=== PATIENT | female | born 1965 | race African-American/Black ===

== ENCOUNTER 2023-08-29 18:46 | Emergency (ER) | payer OTHER ==
[~2023-08-29] VITALS: Ht 170.2 cm; Wt 59.0 kg
[2023-08-29 19:00] VITALS: BP 186/100; PULSE 144; RESP 18; TEMP 98.6; O2SAT 99
[2023-08-29 19:46] LABS: BASOPHILS % 1.2 % (0.0-2.0); DIFFERENTIAL COMMENT 0; EOSINOPHILS % 1.7 % (0.0-5.0); HEMATOCRIT. 38.7 % (36.0-48.0); HEMOGLOBIN. 12.9 g/dL (12.0-16.0); LYMPHOCYTES % 42.3 % (20.0-50.0); MEAN CORPUSCULAR HEMOGLOBIN 34.6 pg (28.0-32.0); MEAN CORPUSCULAR HGB CONC 33.4 g/dL (31.0-37.0); MEAN CORPUSCULAR VOLUME 103.6 fL (81.0-99.0); MEAN PLATELET VOLUME 8.2 fl (7.4-10.4); MONOCYTES % 5.6 % (2.0-8.0); NEUTROPHILS % 49.2 % (40.0-76.0); PLATELET 332 x1000/uL (130-400); RED BLOOD CELL COUNT 3.74 mill/uL (4.2-5.4); RED CELL DISTRIBUTION WIDTH 15.3 % (11.6-14.6); WHITE BLOOD COUNT 6.3 x1000/uL (4.5-11.0)
[2023-08-29 20:05] LABS: CHLORIDE 113 mEq/L (98-107); INDEX HEMOLYSI 1 (1-3); INDEX ICTERIC 1 (1-4); INDEX LIPEMIC 1 (1-3); POTASSIUM 3.6 mEq/L (3.5-5.1); SODIUM 143 mEq/L (136-145)
[2023-08-29 20:16] LABS: ALANINE AMINOTRANSFERASE 31 IU/L (13-61); ALBUMIN 3.8 g/dL (3.4-5.0); ASPARTATE AMINOTRANSFERASE 27 IU/L (15-37); BILIRUBIN TOTAL 0.9 mg/dL (0.1-1.0); CALCIUM 9.4 mg/dL (8.5-10.1); CARBON DIOXIDE 24 mEq/L (21-32); CREATININE 0.7 mg/dL (0.6-1.3); ETHANOL BLOOD 345 mg/dL (<10); GLUCOSE 104 mg/dL (70-105); NT PRO B-TYPE NATRIURETIC PEP 21 pg/mL (5-125); UREA NITROGEN BLOOD 16 mg/dL (7-21)
[2023-08-29 20:47] LABS: TROPONIN I HIGH SENSITIVITY 10 ng/L (<54)
== END 2023-08-29 20:00 | disposition left against medical advice (07) ==
LOC: ER 18:46
DX: R00.2 Palpitations (principal); K21.9 Gastro-esophageal reflux disease without esophagitis
CPT/HCPCS: 36415; 71045; 80053; 80320; 83880; 84484; 85025; 93005; 99285; G0480

== ENCOUNTER 2023-11-28 10:59 | Emergency (ER) | payer OTHER ==
[~2023-11-28] VITALS: Ht 162.6 cm; Wt 80.0 kg
[2023-11-28 11:04] VITALS: BP 170/110; PULSE 90; RESP 18; TEMP 98.2; O2SAT 100
== END 2023-11-28 12:13 | disposition left against medical advice (07) ==
LOC: ER 11:10
DX: R10.9 Unspecified abdominal pain (principal); Z53.21 Procedure and treatment not carried out due to patient leaving prior to being seen by health care provider
CPT/HCPCS: 99281

== ENCOUNTER 2023-11-29 21:01 | Emergency (ER) | payer OTHER ==
[~2023-11-29] VITALS: Ht 167.6 cm; Wt 60.0 kg
[2023-11-29 21:12] VITALS: BP 169/94; PULSE 108; RESP 16; TEMP 97.9; O2SAT 100
== END 2023-11-30 00:31 | disposition left against medical advice (07) ==
LOC: ER 21:01
DX: R10.9 Unspecified abdominal pain (principal); Z53.21 Procedure and treatment not carried out due to patient leaving prior to being seen by health care provider
CPT/HCPCS: 99281

== ENCOUNTER 2023-12-19 16:07 | Emergency (ER) | payer MEDICAID, OTHER ==
[~2023-12-19] VITALS: Ht 165.1 cm; Wt 53.0 kg
[2023-12-19] MEDS ORDERED: MORPHINE SULFATE 4 MG/ML CPJ (NOT FOR IM USE) IV STA (16:16)
[2023-12-19] MEDS ORDERED: ONDANSETRON HCL 4MG/2ML INJ IV STA (16:16)
[2023-12-19] MEDS ORDERED: NAPROSYN (16:19)
[2023-12-19] MEDS ORDERED: METOPROLOL (16:19)
[2023-12-19] MEDS ORDERED: FLEXERIL (16:19)
[2023-12-19 16:20] VITALS: O2SAT 99
[2023-12-19 16:49] LABS: BASOPHILS % 1.1 % (0.0-2.0); DIFFERENTIAL COMMENT 0; EOSINOPHILS % 4.3 % (0.0-5.0); HEMATOCRIT. 38.2 % (36.0-48.0); HEMOGLOBIN. 12.5 g/dL (12.0-16.0); LYMPHOCYTES % 31.2 % (20.0-50.0); MEAN CORPUSCULAR HEMOGLOBIN 34.6 pg (28.0-32.0); MEAN CORPUSCULAR HGB CONC 32.8 g/dL (31.0-37.0); MEAN CORPUSCULAR VOLUME 105.6 fL (81.0-99.0); MEAN PLATELET VOLUME 8.6 fl (7.4-10.4); MONOCYTES % 6.6 % (2.0-8.0); NEUTROPHILS % 56.8 % (40.0-76.0); PLATELET 332 x1000/uL (130-400); RED BLOOD CELL COUNT 3.61 mill/uL (4.2-5.4); RED CELL DISTRIBUTION WIDTH 15.6 % (11.6-14.6)
[2023-12-19 17:00] LABS: INR 0.9; PROTHROMBIN TIME 9.8 sec (9.6-11.0)
[2023-12-19 17:04] LABS: ALANINE AMINOTRANSFERASE 33 IU/L (10-49); ALBUMIN 4.2 g/dL (3.2-4.8); ASPARTATE AMINOTRANSFERASE 34 IU/L (<34); BILIRUBIN TOTAL 0.6 mg/dL (0.1-1.0); CALCIUM 9.7 mg/dL (8.7-10.4); CARBON DIOXIDE 19 mEq/L (21-32); CHLORIDE 108 mEq/L (98-107); CREATININE 1.1 mg/dL (0.6-1.0); GLUCOSE 130 mg/dL (70-105); POTASSIUM 3.6 mEq/L (3.5-5.1); PROTEIN TOTAL 7.2 g/dL (6.0-8.3); SODIUM 141 mEq/L (136-145); UREA NITROGEN BLOOD 33 mg/dL (9-23)
[2023-12-19] MEDS ORDERED: IBUP-2029 MT (19:42)
[2023-12-19] MEDS ORDERED: SODIUM CHLORIDE 0.9% 1,000 ML IV ONE (19:45)
[2023-12-19] MEDS ORDERED: KETOROLAC 15MG/ML VIAL IV NR (19:45)
[2023-12-19 20:18] VITALS: BP 132/71; PULSE 65; RESP 17; TEMP 98.6
== END 2023-12-19 20:19 | disposition home or self-care (01) ==
LOC: ER 16:07
DX: D25.9 Leiomyoma of uterus, unspecified (principal); K76.0 Fatty (change of) liver, not elsewhere classified; Z85.42 Personal history of malignant neoplasm of other parts of uterus; K21.9 Gastro-esophageal reflux disease without esophagitis; I10 Essential (primary) hypertension
CPT/HCPCS: 99285; 74176; 96374; 96375; 80053; 83690; 85025; 85610; 36415; J2405; J2270; J7030

== ENCOUNTER 2024-01-13 20:29 | Emergency (ER) | payer MEDICAID, OTHER ==
[~2024-01-13] VITALS: Ht 157.5 cm; Wt 50.0 kg
[2024-01-13] MEDS: ONDANSETRON HCL 4MG/2ML INJ IV ONE
[~2024-01-13 20:29] MED LIST: FLEXERIL; IBUP-2029 MT; METOPROLOL; NAPROSYN
[2024-01-13 20:39] VITALS: TEMP 98.3; O2SAT 99
[2024-01-13 23:46] LABS: CLARITY URINE CLOUDY (CLEAR); COLOR URINE DARK YELLOW (YELLOW); GLUCOSE URINE NEGATIVE (NEGATIVE); KETONES URINE NEGATIVE (NEGATIVE); LEUKOCYTE ESTERASE URINE 1+ (NEGATIVE); NITRITE URINE NEGATIVE (NEGATIVE); OCCULT BLOOD URINE NEGATIVE (NEGATIVE); PH URINE 5.5 (4.5-8.0); PROTEIN URINE NEGATIVE (NEGATIVE); SPECIFIC GRAVITY URINE 1.012 (1.005-1.030); UROBILINOGEN URINE 0.2 E.U./dL (0.2-1.0)
[2024-01-14] MEDS: KETOROLAC 30MG/ML VIAL IV ONE
[2024-01-14 00:55] LABS: DIFFERENTIAL COMMENT 0; EOSINOPHILS % 5.7 % (0.0-5.0); HEMATOCRIT. 37.1 % (36.0-48.0); HEMOGLOBIN. 12.6 g/dL (12.0-16.0); LYMPHOCYTES % 40.8 % (20.0-50.0); MEAN CORPUSCULAR HEMOGLOBIN 34.9 pg (28.0-32.0); MEAN CORPUSCULAR HGB CONC 33.9 g/dL (31.0-37.0); MEAN CORPUSCULAR VOLUME 102.7 fL (81.0-99.0); NEUTROPHILS % 44.5 % (40.0-76.0); PLATELET 254 x1000/uL (130-400); RED BLOOD CELL COUNT 3.62 mill/uL (4.2-5.4); RED CELL DISTRIBUTION WIDTH 14.9 % (11.6-14.6); WHITE BLOOD COUNT 3.7 x1000/uL (4.5-11.0)
[2024-01-14 01:00] LABS: BACTERIA URINE 2+; SQUAMOUS EPITHELIAL CELL URINE 2+ /lpf (RARE/1+)
[2024-01-14 01:11] LABS: ALANINE AMINOTRANSFERASE 20 IU/L (10-49); ALBUMIN 4.2 g/dL (3.2-4.8); ASPARTATE AMINOTRANSFERASE 29 IU/L (<34); BILIRUBIN TOTAL 0.4 mg/dL (0.1-1.0); CALCIUM 10.5 mg/dL (8.7-10.4); CARBON DIOXIDE 23 mEq/L (21-32); CHLORIDE 105 mEq/L (98-107); CREATININE 1.1 mg/dL (0.6-1.0); GLUCOSE 98 mg/dL (70-105); SODIUM 139 mEq/L (136-145); UREA NITROGEN BLOOD 27 mg/dL (9-23)
[2024-01-14] MEDS ORDERED: IBUP-2029 MT (01:52)
[2024-01-14] MEDS: CEFTRIAXONE 1GM PREMIX 50 ML IV ONE (02:06)
[2024-01-14] MEDS: SODIUM CHLORIDE 0.9% 1,000 ML IV ONE (02:07)
[2024-01-14] MEDS: POTASSIUM CHLORIDE 20MEQ TABLET SR PO ONE (02:07)
[2024-01-14 02:55] VITALS: BP 152/100; PULSE 99; RESP 16
== END 2024-01-14 02:55 | disposition home or self-care (01) ==
LOC: ER 20:29
DX: D25.9 Leiomyoma of uterus, unspecified (principal); D64.9 Anemia, unspecified; I10 Essential (primary) hypertension; Z98.890 Other specified postprocedural states
CPT/HCPCS: 81003; 36415; 96375 ×2; 99285; 80053; 83690; 85025; 76830; 76856; 96365; J1885; J2405; Z7610 ×2; J0696; J7030

== ENCOUNTER 2024-03-18 12:31 | Emergency (ER) | payer MEDICAID, OTHER ==
[~2024-03-18] VITALS: Ht 165.1 cm; Wt 54.0 kg
[2024-03-18 12:33] VITALS: O2SAT 100
[2024-03-18] MEDS: LACTATED RINGERS 500 ML IV SCH (13:01)
[2024-03-18 13:17] LABS: BASOPHILS % 1.6 % (0.0-2.0); DIFFERENTIAL COMMENT 0; EOSINOPHILS % 3.9 % (0.0-5.0); HEMATOCRIT. 37.4 % (36.0-48.0); HEMOGLOBIN. 12.6 g/dL (12.0-16.0); LYMPHOCYTES % 45.8 % (20.0-50.0); MEAN CORPUSCULAR HEMOGLOBIN 34.6 pg (28.0-32.0); MEAN CORPUSCULAR HGB CONC 33.6 g/dL (31.0-37.0); MEAN PLATELET VOLUME 8.4 fl (7.4-10.4); MONOCYTES % 3.6 % (2.0-8.0); NEUTROPHILS % 45.1 % (40.0-76.0); PLATELET 393 x1000/uL (130-400); RED BLOOD CELL COUNT 3.63 mill/uL (4.2-5.4); RED CELL DISTRIBUTION WIDTH 16.3 % (11.6-14.6); WHITE BLOOD COUNT 5.8 x1000/uL (4.5-11.0)
[2024-03-18 13:25] LABS: CARBON DIOXIDE 22 mEq/L (21-32); CHLORIDE 109 mEq/L (98-107); SODIUM 142 mEq/L (136-145)
[2024-03-18 13:26] LABS: CALCIUM 10.2 mg/dL (8.7-10.4)
[2024-03-18 13:31] LABS: CREATININE 1.4 mg/dL (0.6-1.0); GLUCOSE 92 mg/dL (70-105); UREA NITROGEN BLOOD 17 mg/dL (9-23)
[2024-03-18 13:32] LABS: ALANINE AMINOTRANSFERASE 30 IU/L (10-49)
[2024-03-18 13:33] LABS: ASPARTATE AMINOTRANSFERASE 40 IU/L (<34); BILIRUBIN TOTAL 0.8 mg/dL (0.1-1.0); PROTEIN TOTAL 8.2 g/dL (6.0-8.3)
[2024-03-18 13:41] LABS: TROPONIN I HIGH SENSITIVITY < 4 ng/L (3.0-34)
[2024-03-18] MEDS: KETOROLAC 15MG/ML VIAL IV ONE (14:37)
[2024-03-18 16:51] VITALS: BP 134/96; PULSE 109; RESP 16; TEMP 98.3
== END 2024-03-18 17:12 | disposition short-term general hospital (02) ==
LOC: ER 12:31 → EDBEDREQ 14:32 → EDBEDREQTM 14:32 → CANBEDREQ 15:42 → EDBEDREQ 16:36 → ER 17:12 → CANBEDREQ 03-19 16:31
DX: R55 Syncope and collapse (principal); K21.9 Gastro-esophageal reflux disease without esophagitis; I10 Essential (primary) hypertension
CPT/HCPCS: 99285; 96374; 71045; 96361; 80053; 85025; 84484; 36415; 93005; J1885

== ENCOUNTER 2024-11-10 16:49 | Emergency (ER) | payer OTHER ==
[~2024-11-10] VITALS: Ht 160 cm; Wt 50.0 kg
[~2024-11-10 16:49] MED LIST changes: +AMLO5TAB88 PO; +ATOR10TA69 PO; +HYDR25TA PO; -IBUP-2029 MT; +METO25TA6 PO; -NAPROSYN
[2024-11-10 16:56] VITALS: O2SAT 96
[2024-11-10 18:34] LABS: BASOPHILS % 1.4 % (0.0-2.0); DIFFERENTIAL COMMENT 0; EOSINOPHILS % 4.3 % (0.0-5.0); HEMATOCRIT. 37.1 % (36.0-48.0); HEMOGLOBIN. 12.2 g/dL (12.0-16.0); LYMPHOCYTES % 48.4 % (20.0-50.0); MEAN CORPUSCULAR HEMOGLOBIN 35.8 pg (28.0-32.0); MEAN CORPUSCULAR HGB CONC 32.8 g/dL (31.0-37.0); MEAN CORPUSCULAR VOLUME 109.1 fL (81.0-99.0); MEAN PLATELET VOLUME 8.9 fl (7.4-10.4); MONOCYTES % 6.6 % (2.0-8.0); NEUTROPHILS % 39.3 % (40.0-76.0); PLATELET 318 x1000/uL (130-400); RED CELL DISTRIBUTION WIDTH 16.6 % (11.6-14.6); WHITE BLOOD COUNT 4.9 x1000/uL (4.5-11.0)
[2024-11-10 18:38] LABS: CHLORIDE 109 mEq/L (98-107); POTASSIUM 3.7 mEq/L (3.5-5.1); SODIUM 145 mEq/L (136-145)
[2024-11-10 18:39] LABS: CARBON DIOXIDE 24 mEq/L (21-32)
[2024-11-10 18:40] LABS: CALCIUM 10.9 mg/dL (8.7-10.4)
[2024-11-10 18:44] LABS: GLUCOSE 91 mg/dL (70-105)
[2024-11-10 18:45] LABS: UREA NITROGEN BLOOD 12 mg/dL (9-23)
[2024-11-10 18:46] LABS: ALANINE AMINOTRANSFERASE 17 IU/L (10-49); ASPARTATE AMINOTRANSFERASE 21 IU/L (<34)
[2024-11-10 18:47] LABS: BILIRUBIN TOTAL 0.4 mg/dL (0.1-1.0); PROTEIN TOTAL 8.1 g/dL (6.0-8.3)
[2024-11-10 18:52] LABS: INR 0.9; PROTHROMBIN TIME 9.7 sec (9.6-11.0)
[2024-11-10 19:01] LABS: BILIRUBIN DIRECT < 0.1 mg/dL (<=3.0)
[2024-11-10 22:11] LABS: CLARITY URINE CLEAR (CLEAR); COLOR URINE YELLOW (YELLOW); GLUCOSE URINE NEGATIVE (NEGATIVE); KETONES URINE NEGATIVE (NEGATIVE); LEUKOCYTE ESTERASE URINE NEGATIVE (NEGATIVE); NITRITE URINE NEGATIVE (NEGATIVE); OCCULT BLOOD URINE NEGATIVE (NEGATIVE); PH URINE 5.5 (4.5-8.0); PROTEIN URINE NEGATIVE (NEGATIVE); SPECIFIC GRAVITY URINE 1.012 (1.005-1.030); UROBILINOGEN URINE 0.2 E.U./dL (0.2-1.0)
[2024-11-10] MEDS ORDERED: ACETAMINOPHEN 325MG TABLET PO ONE (22:45)
[2024-11-10 23:30] VITALS: BP 135/68; PULSE 86; RESP 16; TEMP 36.83628; O2SAT 98
== END 2024-11-10 23:45 | disposition home or self-care (01) ==
LOC: ER 16:49
DX: R10.31 Right lower quadrant pain (principal); R10.32 Left lower quadrant pain; I10 Essential (primary) hypertension; Z88.6 Allergy status to analgesic agent
CPT/HCPCS: 36415; 74176; 76830; 76856; 80048; 80076; 81003; 85025; 99284